=== PATIENT | female | born 1990 | race Two or more races ===

== ENCOUNTER → 2020-10-12 | Outpatient (CLI) | payer OTHER ==
[~2020-10-12] MED LIST: FAMOTIDINE20 MG; INTEGRA F CAPS1 EAC1; IRON PO; PRENATAL + DHA1 EAC1 PO; PRENATAL PO; SYNTHROID50 MCG PO
== END | disposition home or self-care (01) ==
LOC: NST 17:52
PROVIDERS: ATTEND Obstetrics & Gynecology Maternal & Fetal Medicine
DX: Z34.03 Encounter for supervision of normal first pregnancy, third trimester (principal)

== ENCOUNTER 2020-10-27 10:15 | Inpatient (IN) | payer OTHER ==
[~2020-10-27] VITALS: Ht 162.6 cm; Wt 3.6 kg
[2020-10-27] MEDS ORDERED: PRENATAL PO (13:39)
[2020-10-27] MEDS ORDERED: IRON PO (13:39)
[2020-10-27] MEDS ORDERED: SYNTHROID50 MCG PO (13:39)
[2020-11-03] MEDS ORDERED: INTEGRA F CAPS1 EAC1 (10:21)
[2020-11-03] MEDS ORDERED: FAMOTIDINE20 MG (10:21)
[2020-11-03] MEDS ORDERED: PRENATAL + DHA1 EAC1 PO (10:22)
== END 2020-11-05 14:49 | disposition home or self-care (01) | DRG 786 ==
LOC: LDR 11-02 08:30 → O/R 11-02 09:57 → LDR 11-02 10:15 → OB/GYN 11-02 14:35
PROVIDERS: ADMIT Obstetrics & Gynecology Maternal & Fetal Medicine; ATTEND Obstetrics & Gynecology Maternal & Fetal Medicine
PROC: 4A1HXFZ Monitoring of Products of Conception, Cardiac Rhythm, External Approach (ICD-10-PCS; 2020-11-02)
PROC: 10D00Z1 Extraction of Products of Conception, Low, Open Approach (ICD-10-PCS; principal; 2020-11-02 08:30)
DX: O34.211 Maternal care for low transverse scar from previous cesarean delivery (principal); O15.2 Eclampsia complicating the puerperium; O9A.23 Injury, poisoning and certain other consequences of external causes complicating the puerperium; T40.2X5A Adverse effect of other opioids, initial encounter; O99.284 Endocrine, nutritional and metabolic diseases complicating childbirth; E03.9 Hypothyroidism, unspecified; E16.2 Hypoglycemia, unspecified; Z37.0 Single live birth; Z3A.39 39 weeks gestation of pregnancy